=== PATIENT | female | born 1960 | race Caucasian/White ===

== ENCOUNTER 2016-07-28 16:57 | Inpatient (IN) | payer MEDICARE, MEDICAID ==
[~2016-07-28] VITALS: Ht 157.5 cm; Wt 73.8 kg
--- NOTE | ~2016-07-28 | CON ---
PATIENT'S NAME: AICHA SAEED [facility] AGE: 55 Y [address] ROOM: [address] [address] LOCATION: GICU ADMIT DATE: 07/28/2016 Consultation DISCHARGE DATE: FAMILY PHYSICIAN: PHYSICIAN, UNKNOWN ATTENDING PHYSICIAN: VINAY PANIAGUA DATE OF CONSULTATION: 07/29/2016 REFERRING PHYSICIAN: WHIT ORTIZ MD NEUROLOGICAL CONSULTATION DATE AND TIME: 07/29/2016 at 10:05 a.m. HISTORY OF PRESENT ILLNESS: This is a 55-year-old, female who had been in our sister facility for 30 days which is a mental health facility for psychosis and bipolar disorder. Apparently, the patient suffers from cerebral palsy and uses a scooter and was found in the middle of the traffic before she was taken to this facility for management. She had not taken her medications for many months. Over the last 2 days, the patient has been very agitated and not making any sense, and she was started on Thorazine. She did receive Thorazine IM and p.o. on the day of admission. She was found to be very drowsy and eventually unresponsive, and brought to our hospital emergency room for further management. By the time she reached the ED, her Rd Coma Score was 6. She would open her eyes but would not move. She does not withdraw to pain. There was no rigidity and the patient was quite flaccid. A stat CT of the head was obtained and found to be negative. Because there was a concern for airway protection, the patient was intubated and started on propofol. At the time of our examination in the ICU, the patient is intubated. She was on propofol 50 mg up until 5 o'clock this morning and that was discontinued in an attempt to wean the patient off the vent. Apparently on the propofol, she was able to point to the caregivers and mouth words. Now off the propofol, she does not move anything or react to any stimuli. Her brainstem reflexes are intact and that is about it right now. This is very suspicious for some seizure activity. The consult was completed in a timely manner to evaluate the patient. REVIEW OF SYSTEMS: Could not be accomplished, since the patient is sedated and intubated. PAST MEDICAL HISTORY: Prior medical history includes: 1. History of bipolar disorder. 2. PTSD. PATIENT'S NAME: KILLEFER, AICHA [facility] AGE: 55 Y [address] ROOM: [address] [address] LOCATION: GICU ADMIT DATE: 07/28/2016 Consultation DISCHARGE DATE: FAMILY PHYSICIAN: PHYSICIAN, UNKNOWN ATTENDING PHYSICIAN: VINAY PANIAGUA 3. History of cerebral palsy. The patient can walk with a walker, but also has a scooter for mobility. 4. Hypertension. 5. Hypothyroidism. 6. Arthritis. MEDICATIONS: Home medications are on the chart and reviewed by me. The list of medications is multiple and includes the newly added Thorazine from 2 days ago. ALLERGIES: SHE IS ALLERGIC TO PENICILLIN, CEPHALOSPORIN, ALBUTEROL, ERYTHROMYCIN, TRAMADOL, TOPAMAX, OLANZAPINE, AND LATEX. SOCIAL HISTORY: There is no substance abuse history per the reviewed records. Obviously, the patient is unable to confirm this. FAMILY HISTORY: Significant for suicide and substance abuse in her family members per the reviewed records. Obviously, the patient is unable to confirm this. PHYSICAL EXAMINATION: VITAL SIGNS: Her temperature is 99.0, pulse is 120 and regular, and respirations are 16. She does overbreathe to set that rate. Blood pressure is 149/82. GENERAL: The patient is lying comfortably in the bed and intubated. Does not make any efforts to discontinue equipment. HEENT: Head is normocephalic and atraumatic. Pupils are equal, round, midpoint, and reactive to light. NECK: Supple with no JVD noted. No bruits are auscultated. HEART: Tachycardic. S1 and S2 without murmur, rub, or gallop. LUNGS: Clear to auscultation bilaterally. ABDOMEN: Soft, nontender, and nondistended. NEUROLOGIC: As discussed, the pupils are equal and reactive to light bilaterally and 2 mm. She does overbreathe event. She does have a corneal pupil and gag reflex. She does not withdraw her extremities to any pain or move to any central pain stimulus. Her Babinski are unobtainable. 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 Her procalcitonin was 52.4, however, Thorazine can certainly elevate that. CT of head was negative for any acute intracranial abnormality. ASSESSMENT AND PLAN: PATIENT'S NAME: AICHA SAEED [facility] AGE: 55 Y [address] ROOM: [place] [address] LOCATION: GICU ADMIT DATE: 07/28/2016 Consultation DISCHARGE DATE: FAMILY PHYSICIAN: PHYSICIAN, UNKNOWN ATTENDING PHYSICIAN: VINAY PANIAGUA A 55-year-old female, presenting with altered mental status: 1. Altered mental status, unknown etiology. It could be medication related to Thorazine. Differentials include seizures also. 2. Concern for seizure. Because our EEG capability will not be present until Sunday, it would probably be in the patient's best interest to go to a facility that has EEG capabilities. We will restart her on propofol immediately, and load with Keppra 1500 mg, and continue 1000 mg b.i.d. for seizure prophylaxis in the meantime. 3. Airway protection. The patient will remain intubated for airway protection due to her neurological status. 4. History of psychosis. We will defer this treatment until the seizure versus altered mental status is declared. Thank you for the opportunity to participate in this patient's care. If you have any questions, please consult us. PRASHANTH WOODARD APRN FOR MARGI BLOOM MD PP/vilma /[id number] d: 07/29/16 1137 t: 07/31/16 1322, CONSULTATION REPORT
--- NOTE | ~2016-07-28 | CON ---
PATIENT'S NAME: [facility] AGE: 55 Y [address] ROOM: [place] [address] LOCATION: GICU ADMIT DATE: 07/28/2016 Consultation DISCHARGE DATE: 07/29/2016 FAMILY PHYSICIAN: PHYSICIAN, UNKNOWN ATTENDING PHYSICIAN: MIKHAIL PANIAGUA DATE OF CONSULTATION: 07/29/2016 REFERRING PHYSICIAN: WHIT ORTIZ MD REQUESTING PHYSICIAN: Mikhail Paniagua MD REASON FOR CONSULTATION: Evaluation and management of acute respiratory failure in a patient who was intubated and started on mechanical ventilation. CHIEF COMPLAINT: Altered mental status. HISTORY OF PRESENT ILLNESS: This is a 55-year-old female with history of schizoaffective and bipolar disorder who was admitted to the psychiatric hospital 3 days ago after an episode of acute psychosis. Initially, the patient responded to therapy with Thorazine until approximately 2 days ago when she became more combative in the psychiatric hospital. Her Thorazine doses were increased, and she also received Thorazine intramuscularly. Yesterday, she was found to be unresponsive and very drowsy. For this reason, she was transferred to our emergency department where she was promptly intubated as her GCS was 6 and there was concern for inability to protect her airways. Prior to that, there was no evidence of rigidity, although the patient was found to be flaccid. After she was intubated, she was started on mechanical ventilation with a tidal volume of 500 and respiratory rate of 14. Overnight, she required only 30% FiO2 while on a PEEP of 5. Earlier this morning, she was started on CPAP mode with a pressure support of 10. The patient was able to breathe on her own at the time of my examination, although she would not respond in any way including to strong verbal stimuli or painful stimuli. It seems that last night she was able to follow commands for a short period of time. Because of her acute respiratory failure requiring mechanical ventilation, I was asked by the admitting physician, Dr. Paniagua, from the hospitalist team to come and evaluate the patient. The patient was initially placed on propofol, which was put on hold earlier this morning. REVIEW OF SYSTEMS: Could not be obtained because of the patient's clinical status. She was intubated and unresponsive at the time of my examination. PATIENT'S NAME: KILLEFER, [facility] AGE: 55 Y [address] ROOM: [address] [place] [id number] LOCATION: [facility] ADMIT DATE: 07/28/2016 Consultation DISCHARGE DATE: 07/29/2016 FAMILY PHYSICIAN: PHYSICIAN, UNKNOWN ATTENDING PHYSICIAN: MIKHAIL PANIAGUA PAST MEDICAL HISTORY: 1. History of bipolar disorder. 2. PTSD. 3. History of schizoaffective disorder. 4. Hypertension. 5. Hypothyroidism. 6. Osteoarthritis. 7. Cerebral palsy. CURRENT MEDICATIONS: Reviewed as per chart and documented in the MAR. ALLERGIES: PENICILLIN, CEPHALOSPORIN, ALBUTEROL, ERYTHROMYCIN, TRAMADOL, TOPAMAX, OLANZAPINE, AND LATEX. SOCIAL HISTORY: There is no history of alcohol or illicit drug abuse. FAMILY HISTORY: Could not be obtained because of the patient's clinical status. PHYSICAL EXAMINATION: VITAL SIGNS: Temperature is 100.4, heart rate is 113, respiratory rate is 14, blood pressure is 128/69, and oxygen saturation 98% on 30% FiO2 and a PEEP of 5. Weight is 73.8 kg and height is 5 feet 2 inches with a BMI of 29.7. GENERAL: She is intubated with a #7.5 endotracheal tube secured at 24 cm at the teeth. CARDIOVASCULAR: Regular rhythm, tachycardic. No murmur, rubs, or gallops. RESPIRATORY: Good air entry bilaterally. Clear to auscultation. ABDOMEN: Soft, nontender, and nondistended. Bowel sounds are present. EXTREMITIES: No lower extremity edema, no cyanosis, and no clubbing. NEUROLOGICAL: Her pupils are reactive to light. She is not responding to strong verbal stimuli or painful stimuli either. Babinski is negative. LABORATORY AND DIAGNOSTIC DATA: Head CT was negative for any acute intracranial abnormality. Lactic acid was 1.1. Arterial blood gas yesterday in the emergency department revealed a pH of 7.45, pCO2 was 41, and PO2 was 91 while on supplemental oxygen at 2 L per minute. Earlier today, her pH was 7.54, pCO2 was 30, and PO2 was 84 while on 30% FiO2. The base excess was 3.7. Chest x-ray revealed the endotracheal tube being present at about 4 cm above the carolee. The lung beatty did not reveal any opacities, and she had no evidence of pleural effusion. An ABG this morning revealed a pH of 7.54, pCO2 of 30, and PO2 of 84 while on 30% PATIENT'S NAME: AICHA SAEED [facility] AGE: 55 Y [address] ROOM: [id number] [place], [place] [address] LOCATION: GICU ADMIT DATE: 07/28/2016 Consultation DISCHARGE DATE: 07/29/2016 FAMILY PHYSICIAN: PHYSICIAN, UNKNOWN ATTENDING PHYSICIAN: MIKHAIL PANIAGUA. Troponin on arrival was less than 0.04, CK-MB was less than 0.5, and CPK was 245. Basic panel from today was normal. CBC was normal as well. Prolactin was elevated at 52.4. Urine drug screen was negative. ASSESSMENT AND PLAN: 1. Acute respiratory failure. The patient was intubated for airway protection. Currently, she has a stable respiratory status, although there is still high concern for inability to protect her airway because of her altered mental status. 2. Altered mental status. This is of unclear etiology. It can be a side effect from medications versus subclinical seizures. I doubt the patient has neuroleptic malignant syndrome. 3. History of bipolar disorder with psychosis. The patient was admitted for an episode of acute psychosis. 4. History of cerebral palsy. 5. Tachycardia. This is most likely a side effect from medication. PLAN: 1. We will continue with mechanical ventilation, and we will wait for her mental status to improve. We will continue to use CPAP mode as long as the patient's respiratory drive is still present. 2. We will minimize sedation, and if her hemodynamic status allows, we will try to use propofol. 3. We will follow up neurology and psychiatry team's recommendations. I spent 35 minutes of critical care time managing acute respiratory failure in a patient with altered mental status with multiple psychiatric disorders. I personally reviewed the data and coordinated care among healthcare providers. No family member was available for updates. I would like to thank you, Dr. Paniagua, for giving me the opportunity to participate in this patient's care. MD BALBIR BEASLEY/vilma /[id number] d: 07/29/16 1226 t: 07/31/16 0843, CONSULTATION REPORT
--- NOTE | ~2016-07-28 | ER ---
PATIENT'S NAME: AICHA SAEED [facility] AGE: 55 Y [address] ROOM: [place] [address] LOCATION: GICU ADMIT DATE: 07/28/2016 ER/Outpatient Report DISCHARGE DATE: FAMILY PHYSICIAN: PHYSICIAN, UNKNOWN ATTENDING PHYSICIAN: VINAY PANIAGUA CHIEF COMPLAINT: Unresponsive. HISTORY OF PRESENT ILLNESS: The patient arrives by ambulance for [facility] for evaluation of an unresponsive episode. The patient has been hospitalized for approximately 1 month at their facility and is originally from [place] and has no local physician. She has a history of schizoaffective disorder. She had been tried on multiple medications while in [facility] to stabilize her manic-type episode. Yesterday, she was having significant outbursts and aggressiveness and was treated with Thorazine. She got higher dose this morning and since then has been basically completely unresponsive. Her vital sign checks have revealed elevated blood pressure; however, the patient has been refusing her blood pressure medication. Otherwise, according to the transferring provider, she has been noninteractive and lying in bed throughout the day. He was initially concerned that she just needed to sleep because of how intense yesterday was; however, it appears as though she is not improving with some rest and that is why she was sent in. Her last dose was this morning. The exact time is unknown. She was also noted to have cerebral palsy at baseline. Dr. Pinto is who I have spoken with at that facility. PAST MEDICAL HISTORY: Notable for schizoaffective disorder and cerebral palsy of undetermined severity and high blood pressure as well. PAST SURGICAL HISTORY: I do not have any information on that. SOCIAL HISTORY: The patient has a medical decision maker brother named Dean who lives in [place] as best I can tell. She is not independent otherwise. REVIEW OF SYSTEMS: Unable to obtain review of systems secondary to the patient's current mental status. All available information was obtained from the transferring facility and providers there. PHYSICAL EXAMINATION: PATIENT'S NAME: AICHA SAEED [facility] AGE: 55 Y [address] ROOM: [place] [address] LOCATION: GICU ADMIT DATE: 07/28/2016 ER/Outpatient Report DISCHARGE DATE: FAMILY PHYSICIAN: PHYSICIAN, UNKNOWN ATTENDING PHYSICIAN: VINAY PANIAGUA VITAL SIGNS: Blood pressure 150/93, pulse 110, respiratory rate is 16, temperature 98.8, SpO2 is 96% on room air. Pain is 0/10. GENERAL: Age-appropriate female, lying in the bed with no meaningful movement, in no apparent pain or distress. NEURO: The patient is not awake. Her GCS is 5-6. She is flaccid with no movement or withdrawal to pain and she is nonverbal. Her eyes are intermittently open and close spontaneously. She is flaccid except for when the arm is held over the face, it falls down to her side, not into her face. She occasionally will blink to confrontation when her eyes are held open. HEENT: Her pupils are PERRL, extraocular movements appear to be intact, though it is difficult to evaluate them. She does not react to sternal rub. She does not react to pain or stimulus in the periphery. She does not arouse to name. Reflexes were difficult to test, but appeared to be intact. Normocephalic, atraumatic. The eyes are PERRL. Pupils are 3-4 mm and reactive. Sclerae are clear. The nasopharynx is normal to inspection. The oropharynx is small, but no erythema, exudates, or bleeding. NECK: Supple. The trachea is midline. CHEST: Heart is tachycardic with no obvious murmurs. LUNGS: Clear to auscultation bilateral in all lung beatty. ABDOMEN: Soft, nontender, and nondistended. No rebound, no guarding, no masses. BACK: Normal to inspection. EXTREMITIES: Warm and well-perfused with no obvious deformities or edema. SKIN: Intact with no rashes, bruising, or erythema appreciated. He. IMAGING: Head CT was obtained and read as normal per Radiology. Post intubation chest x-ray was obtained and will be confirmed in the ICU. The EKG is sinus tachycardia, rate of 105 with IN 136, QRS of 82, QTc of 388. Otherwise, normal intervals and axis. No signs of acute ischemia or dysrhythmia at this time. LABORATORY DATA: Lactate is 1.1. Sodium 142, potassium 3.9, chloride 107, CO2 is 24, BUN is 11, and creatinine 0.6. GFR is greater than 60. LFTs are all within normal limits. CPK is elevated at 362. CK-MB is 0.7. Troponin I is below threshold. WBCs of 5.9, hemoglobin 14.0, platelets of 215. INR is 0.9. Free T4 is 1.1. TSH is 4.22. PH 7.45, pCO2 is 41, PO2 is 91, bicarb is 28.5, saturating 97% on 2 L nasal cannula, but breathing through the mouth primarily. IMPRESSION: 1. Unresponsive episode, likely related to chlorpromazine. 2. Possible neuroleptic malignant syndrome. PATIENT'S NAME: AICHA SAEED [facility] AGE: 55 Y [address] ROOM: [place] [address] LOCATION: [facility] ADMIT DATE: 07/28/2016 ER/Outpatient Report DISCHARGE DATE: FAMILY PHYSICIAN: PHYSICIAN, UNKNOWN ATTENDING PHYSICIAN: VINAY PANIAGUA 3. Hypothyroidism. 4. Elevated CPK. EMERGENCY DEPARTMENT COURSE: The patient was evaluated as above. She was maintaining her airway adequately and exchanging gas appropriately. However, based on her current mental status, I was concerned about her safety regarding her airway with her current mental status. With an unclear etiology at this time and high probability for airway compromise, I elected to intubate the patient. I did try to contact her medical decision maker, Dean, and was unable to do so, but I left a message on the phone number. The intubation was done by, Evelina Heard, flight nurse, under my immediate direct supervision. Attempt with a 3 blade on a Clothier scope was difficult secondary to a small mouth and deep larynx. On a second attempt, with a 4 blade, we had a grade 1 view of the glottis and we were able to intubate with no difficulty. There was no injury to teeth. There was a little bit of blood in the posterior oropharynx at the end of the procedure. No obvious areas of bleeding. The patient was induced with 20 of etomidate and 10 of vecuronium. I did not have her electrolyte status at that time. The procedure was without difficulty and the lowest O2 saturation achieved was 94%. The patient otherwise tolerated the procedure well and postprocedure chest x-ray was ordered and was pending. Transferred to the ICU. The patient was given fluids for possible dehydration/hypovolemia versus early autonomic instability and neuroleptics malignant syndrome. As this is my chief diagnosis, I have discussed the case with the hospitalist on-call, and we will admit her to his service in the ICU for further evaluation and treatment. Please see his dictation for further details regarding this patient's hospital care. Critical Care: 56 minutes of critical care was spent on this patient not including the intubation. Care was for patient evaluation, contacting sending provider, gathering history from prior hospital, patient evaluation, ordering and interpreting labs including blood gas and EKG. Care was warranted for acute encephalopathy of undetermined etiology. MD CARL PRYOR/vilma /[id number] d: 07/29/168[address] t: 07/31/16 1814, OUTPATIENT REPORT
--- NOTE | ~2016-07-28 | HP ---
PATIENT'S NAME: AICHA SAEED [facility] AGE: 55 Y [address] ROOM: [place] [address] LOCATION: [facility] ADMIT DATE: 07/28/2016 History & Physical DISCHARGE DATE: FAMILY PHYSICIAN: PHYSICIAN, UNKNOWN ATTENDING PHYSICIAN: VINAY PANIAGUA DATE OF SERVICE: PRIMARY CARE PHYSICIAN: None. CHIEF COMPLAINT: Altered mental status. HISTORY OF PRESENT ILLNESS: This is a 55-year-old female, who has been undergoing treatment at [facility] for the past month or so. The patient has a history of bipolar disorder and also psychosis. She was undergoing treatment per reviewed records. Apparently, the patient was very agitated and did not make any sense over the past couple of days. This morning, she ended up receiving a dose of Thorazine initially IM and then p.o. Subsequently, the patient was found to be unresponsive and very drowsy. She was then transferred to [facility] ER for further evaluation and management of her unresponsive episode and altered mental status. As per history received from the ER physician, by the time the patient came to the ER, she had a GCS score of 6. She would open her eyes but would not move her body. She would also not withdraw to pain. She had no spontaneous movements. There was no rigidity, but the patient was found to be flaccid. She would still open her eyes on command. Stat CT of head was obtained at that point of time and was found to be negative. There was concern for airway obstruction, and the patient was intubated in the ER by the ER physician for airway protection. At the time of my examination in the ICU, the patient is intubated. She does not follow any commands. She is currently just starting to be sedated with propofol. She is also slightly hypertensive and tachycardic at this point of time. Her temperature is normal. No other history could be obtained from the patient at this point of time. REVIEW OF SYSTEMS: A 10-point review of systems could not be accomplished since the patient is sedated and intubated. PAST MEDICAL HISTORY: PATIENT'S NAME: AICHA SAEED [facility] AGE: 55 Y [address] ROOM: [place] [address] LOCATION: GICU ADMIT DATE: 07/28/2016 History & Physical DISCHARGE DATE: FAMILY PHYSICIAN: PHYSICIAN, UNKNOWN ATTENDING PHYSICIAN: VINAY PANIAGUA 1. History of bipolar disorder. 2. PTSD. 3. History of cerebral palsy. 4. Hypertension. 5. Hypothyroidism. 6. Arthritis. HOME MEDICATIONS: Not available at the time of dictation. ALLERGIES: 1. PENICILLIN. 2. CEPHALOSPORIN. 3. ALBUTEROL. 4. ERYTHROMYCIN. 5. TRAMADOL. 6. TOPAMAX. 7. OLANZAPINE. 8. LATEX. SOCIAL HISTORY: Reviewed. No substance abuse history per reviewed records. She has a history of cerebral palsy. FAMILY HISTORY: Significant for suicide and substance abuse per reviewed records. PHYSICAL EXAMINATION: GENERAL: Temperature 99.0, pulse 112 and regular, respirations 14, blood pressure 180/105. GENERAL: The patient is sedated and intubated currently. HEENT: Head: Normocephalic, atraumatic. Pupils are equal, round, and reactive to light bilaterally. Nares are clear. Throat, the patient has an endotracheal tube to the angle of the mouth. NECK: Supple. HEART: Tachycardic. Regular rhythm. LUNGS: Clear to auscultation bilaterally. Equal breath sounds heard bilaterally. ABDOMEN: Soft, nontender, nondistended. Bowel sounds are present. EXTREMITIES: No clubbing, cyanosis, or edema. VASCULAR: Pulses 2+ distally bilaterally. NEUROLOGIC: The patient is sedated and intubated. Pupils are equal, round, reactive to light bilaterally. The patient had a GCS score of 6 prior to intubation. She would open her eyes prior to intubation but not withdraw to pain. PATIENT'S NAME: AICHA SAEED [facility] AGE: 55 Y [address] ROOM: [id number] [place] [id number] LOCATION: [facility] ADMIT DATE: 07/28/2016 History & Physical DISCHARGE DATE: FAMILY PHYSICIAN: PHYSICIAN, UNKNOWN ATTENDING PHYSICIAN: VINAY PANIAGUA DIAGNOSTIC STUDIES: Initial ABG done in the ER prior to intubation showed a pH of 7.45, pCO2 of 41, pO2 of 91, bicarb 28.5, saturation 97% on 2 L nasal cannula oxygen, lactate 1.1. Accu-Chek 89. CPK 362. Troponin I is less than 0.04. CBC showed a white count of 5.9, hemoglobin 14.2, hematocrit 42.7, platelet 215. CMP showed sodium 142, potassium 3.9, chloride 107, bicarb 24, BUN 11, creatinine 0.6, glucose 84, calcium 8.8. Total protein 7.3, albumin 3.8, AST 32, ALT 29, alkaline phosphatase 111, total bilirubin 0.9, anion gap 14.9, globulin 3.5, GFR more than 60. PT 9.8, INR 0.9, PTT 30. UA is pending at this point of time. Urine drug screen is pending. CK-MB 0.7. Free T4 1.1. TSH 4.22. Procalcitonin level less than 0.05. CT of head done in the ER prior to intubation for unresponsive episode showed no acute intracranial abnormality. CTA of head and neck is pending after Neurology recommendation. Chest x-ray done after intubation shows endotracheal tube in place. No acute cardiopulmonary abnormality noted. EKG showed sinus tachycardia with a rate of 112 beats per minute. ASSESSMENT AND PLAN: A 55-year-old female, presenting with altered mental status. 1. Altered mental status. Unsure about the etiology of altered mental status. This is likely medication related. The patient received a couple doses of Thorazine. Differential of altered mental status at this point includes seizure, serotonin syndrome, neuroleptic malignant syndrome, medication effect. Neurology has been consulted. Further recommendations per Neurology. 2. Concern for seizure. Discussed the case with Neurology. EEG will be obtained in the a.m. The patient is currently on propofol. Discussed with Dr. Ma and continue propofol for now for seizure. Differential also includes stroke. The patient may undergo a stat CTA head and neck currently. We will follow up with Neurology recommendations after the CTA head and neck. 3. Acute hypoxic respiratory failure. The patient was intubated in the ER for airway protection. I will repeat an ABG in an hour. 4. History of psychosis. We will obtain a Psychiatry consult for the patient while she is here at [facility]. 5. History of bipolar disorder. 6. History of posttraumatic stress disorder. 7. Hypothyroidism. Continue home medication. 8. Hypertension. The patient is hypertensive. She received propofol and pressure is now slightly decreasing. I will utilize hydralazine p.r.n. for hypertension. Continue home medications for hypertension. 9. History of cerebral palsy. 10. Code status. Full code. The patient is currently intubated. PATIENT'S NAME: AICHA SAEED [facility] AGE: 55 Y [address] ROOM: [address] [address] LOCATION: [facility] ADMIT DATE: 07/28/2016 History & Physical DISCHARGE DATE: FAMILY PHYSICIAN: PHYSICIAN, UNKNOWN ATTENDING PHYSICIAN: VINAY PANIAGUA 11. Deep vein thrombosis prophylaxis. SCD to legs. VINAY PANIAGUA MD MT/vilma /[id number] D: [id number] T: [id number] HISTORY & PHYSICAL
--- NOTE | ~2016-07-28 | DS ---
PATIENT'S NAME: AICHA SAEED [facility] AGE: 55 Y [address] ROOM: [address] [address] LOCATION: [facility]ICU ADMIT DATE: 07/28/2016 Discharge Summary DISCHARGE DATE: 07/29/2016 FAMILY PHYSICIAN: Physician, Unknown ATTENDING PHYSICIAN: Mikhail Flaherty FINAL/DISCHARGE DIAGNOSES: 1. Acute encephalopathy felt to be secondary to seizure activity. 2. Essential hypertension. 3. Hypothyroidism. 4. History of bipolar disorder. 5. Post-traumatic stress disorder. HISTORY OF PRESENT ILLNESS: For details of admission, please see the history and physical dictated by Dr. Flaherty, but in short, the patient was accepted and was hospitalized at [facility] for her underlying mental condition. She had received two doses of Thorazine one IM and one p.o. Shortly after that she was found unresponsive. She was brought into the Emergency Room at [facility] and was intubated and admitted into the intensive care unit. LABORATORY STUDIES: ABGs on admission; pH 7.45, pCO2 of 41, pO2 of 91, and O2 saturation 97% on 2 L. ABGs on the morning of the with pH of 7.54, pCO2 of 30, and pO2 of 84. Admission sodium of 142, potassium 3.9, chloride 107, CO2 of 24, BUN 11, creatinine 0.6, alkaline phosphatase 111, AST 32, and ALT 29. CPK 362, MB 0.7, and troponin is less than 0.04. Admission white blood cell count 5.9, hemoglobin 14.0, hematocrit 42.7, and platelet count is 215,000. PTT 30, prothrombin time 9.8, and INR 0.9. Urinalysis is 0-2 reds, 0-2 whites. Chest x-ray done after intubation showed proper tube placement. No evidence of any acute process. A CT scan of the head without contrast did not show any intracranial abnormality. A CT angiogram did not show any high- grade vessel stenosis. There is a mild short segment stenosis of the mid right ICA. Chest x-ray on the second hospital day remained unremarkable. HOSPITAL COURSE: The patient was admitted into the intensive care unit after presenting to the emergency room. She was placed on Diprivan for sedation while being ventilated. She was evaluated for stroke, and Teleneurology was consulted. Studies really did not show any significant abnormality. It was noted during the night by the night nurses that the patient was interactive. She was mouthing words to them and following commands. Her propofol was shut off at 5:00 a.m. and by the time I rounded this morning, the patient was unresponsive again. She was also tachycardic, hypertensive, and had a low- grade fever. She was seen again by Teleneurology. A decision was made that most likely she was seizing, a dose of Keppra at 1500 mg is ordered for IV infusion, and then started on a 1000 mg twice daily. At this time, we do not PATIENT'S NAME: AICHA SAEED [facility] AGE: 55 Y [address] ROOM: [id number] [place], [place] [address] LOCATION: [facility] ADMIT DATE: 07/28/2016 Discharge Summary DISCHARGE DATE: 07/29/2016 FAMILY PHYSICIAN: Physician, Unknown ATTENDING PHYSICIAN: Mikhail Flaherty have EEG availability so the patient was felt that she needed to be transferred. I contacted the [facility] and spoke with Dr. Onel Atkinson, who said that the patient would be accepted under the care of Dr. Fred Claros. DISCHARGE INSTRUCTIONS: Discharge orders: 1. The patient was discharged on propofol. 2. Normal saline at 75 mL an hour. 3. NovoLog, mild sliding scale. 4. Lopressor 5 mg IV q.6 hours. Hold for heart rate less than 60 or systolic blood pressure less than 95. 5. Protonix 40 mg IV daily. 6. [place] spray 2 nasal sprays every 6 hours per VAP protocol. 7. Dextrose, 50% dextrose 25 mL IVP for hypoglycemia. 8. Fentanyl 25 to 50 mcg IV push as needed for pain. 9. Glucagon 1 mg subcutaneous for hypoglycemia. 10. Glucose 16 g for hypoglycemia. 11. Apresoline 10 mg IV every 6 hours for systolic blood pressure greater than 180. 12. Keppra 1000 mg IV q.12. DISPOSITION: The patient will be flown via helicopter to [facility]. DEANGELO MONTALVO MD LAW/modl /[id number] d: 07/29/16 1210 t: 08/09/16 1643, DISCHARGE SUMMARY
[~2016-07-28 16:57] MED LIST changes: -CEPASTAT1 LOZ MT; -INVEGA SUS156 MG/1 M IM; -LIP BALM BASE90 GM TOP; -MILK OF MA400 MG/5 M PO; -MYLANTA (MAG-AL30 ML PO; -NEOSPORIN OINT1 EACH TOP; -PEPCID20 MG PO; -SUDAFED30 MG PO; -THORAZINE IM; -THORAZINE100 MG PO; -THORAZINE25 MG PO; -TYLENOL325 MG PO
[2016-07-28 17:42] LABS: BICARBONATE 28.5 mmol/L (18.0-23.0); PCO2 41 mmHg (35-45); PO2 91 mmHg (80-90)
[2016-07-28 17:42] LABS: BASOPHIL % 0.5 %; EOSINOPHIL # 0.1 K/uL (0.0-0.5); EOSINOPHIL % 1.3 %; HEMATOCRIT 42.7 % (33.0-46.0); IMMATURE GRANULOCYTE % 0.2 %; LYMPHOCYTE # 1.7 K/uL (0.8-4.0); LYMPHOCYTE % 29.1 %; MCH 30.7 pg (27.0-34.0); MCHC 32.8 gm/dL (32.0-36.5); MCV 93.6 fl (83.0-98.0); MONOCYTE # 0.7 K/uL (0.0-1.0); MONOCYTE % 12.3 %; MPV 8.9 fl (9.4-12.4); NEUTROPHIL # (ANC) 3.4 K/uL (1.8-7.8); NEUTROPHIL % 56.6 %; NRBC % 0 /100WBC (0-0.00); PLATELET COUNT 215 K/uL (150-450); RBC 4.56 M/uL (3.50-5.50); RDW-CV 12.7 % (11.9-14.6); WBC 5.9 K/uL (4.0-11.0)
[2016-07-28 17:48] LABS: INR - (THERAPEUTIC) 0.9 (0.9-1.1); PROTIME 9.8 SECONDS (9.6-11.1); PTT 30 SECONDS (25-32)
[2016-07-28 18:02] LABS: ALBUMIN 3.8 gm/dL (3.5-5.0); ALK PHOS 111 IU/L (33-138); ALT 29 IU/L (12-78); ANION GAP 14.9 (10.0-19.0); AST 32 IU/L (10-40); BLOOD UREA NITROGEN 11 mg/dL (6-24); CALCIUM 8.8 mg/dL (8.5-10.5); CHLORIDE 107 mMol/L (96-110); CO2 24 mMol/L (22-32); CPK 362 IU/L (21-215); CREATININE 0.6 mg/dL (0.5-1.1); ESTIMATED GFR (MDRD EQUATION) > 60; POTASSIUM 3.9 mMol/L (3.7-5.1); SODIUM 142 mMol/L (135-145); TOTAL BILIRUBIN 0.9 mg/dL (0.0-1.5); TOTAL PROTEIN 7.3 g/dL (6.0-8.4)
[2016-07-28 18:47] LABS: BILIRUBIN URINE NEGATIVE (NEGATIVE); BLOOD URINE NEGATIVE /UL (NEGATIVE); COLOR URINE YELLOW (YELLOW); GLUCOSE URINE NEGATIVE (NEGATIVE); KETONE URINE NEGATIVE (NEGATIVE); LEUKOCYTES URINE 25 /UL (NEGATIVE); NITRITE URINE NEGATIVE (NEGATIVE); PROTEIN URINE NEGATIVE (NEGATIVE); SPEC GRAVITY URINE 1.015 (1.003-1.035); TURBIDITY URINE CLEAR (CLEAR); UROBILINOGEN URINE NORMAL (NORMAL)
[2016-07-28 19:03] LABS: RBC URINE NEGATIVE #/HPF (NEGATIVE); WBC URINE 0-2 #/HPF (NEGATIVE)
[2016-07-28 19:04] LABS: AMORPHOUS URINE 1+ (NEGATIVE); BACTERIA URINE RARE (NEGATIVE); EPITHELIAL URINE 0-2 #/HPF (NEGATIVE)
[2016-07-28 19:06] LABS: BARBITURATE NEGATIVE (NEGATIVE); COCAINE NEGATIVE (NEGATIVE); OPIATES NEGATIVE (NEGATIVE)
[2016-07-28 19:07] LABS: AMPHETAMINE NEGATIVE (NEGATIVE)
[2016-07-28] MEDS ORDERED: THORAZINE IM ×2 (19:43→19:44)
[2016-07-28] MEDS ORDERED: THORAZINE25 MG PO (19:45)
[2016-07-28] MEDS ORDERED: THORAZINE100 MG PO (19:46)
[2016-07-28] MEDS ORDERED: INVEGA SUS156 MG/1 M IM (19:50)
[2016-07-28] MEDS ORDERED: DRISDOL 5050000 UNIT PO (19:52)
[2016-07-28] MEDS ORDERED: TYLENOL325 MG PO (19:53)
[2016-07-28] MEDS ORDERED: MYLANTA (MAG-AL30 ML PO (19:54)
[2016-07-28] MEDS ORDERED: LIP BALM BASE90 GM TOP (19:55)
[2016-07-28] MEDS ORDERED: PEPCID20 MG PO (19:55)
[2016-07-28] MEDS ORDERED: MILK OF MA400 MG/5 M PO (19:57)
[2016-07-28 19:58] LABS: CPK 324 IU/L (21-215)
[2016-07-28] MEDS ORDERED: NEOSPORIN OINT1 EACH TOP (19:58)
[2016-07-28] MEDS ORDERED: SUDAFED30 MG PO (19:59)
[2016-07-28] MEDS ORDERED: CEPASTAT1 LOZ MT (20:02)
[2016-07-28 20:59] LABS: BICARBONATE 24.2 mmol/L (18.0-23.0); PCO2 35 mmHg (35-45); PO2 181 mmHg (80-90)
[2016-07-29 02:23] LABS: BASOPHIL % 0.4 %; EOSINOPHIL % 0.4 %; HEMATOCRIT 37.9 % (33.0-46.0); HEMOGLOBIN 12.7 g/dL (10.0-15.0); IMMATURE GRANULOCYTE % 0.3 %; LYMPHOCYTE # 0.9 K/uL (0.8-4.0); LYMPHOCYTE % 9.3 %; MCH 30.8 pg (27.0-34.0); MCHC 33.5 gm/dL (32.0-36.5); MCV 91.8 fl (83.0-98.0); MONOCYTE # 0.8 K/uL (0.0-1.0); MONOCYTE % 8.4 %; MPV 8.9 fl (9.4-12.4); NEUTROPHIL # (ANC) 7.9 K/uL (1.8-7.8); NEUTROPHIL % 81.2 %; NRBC % 0 /100WBC (0-0.00); PLATELET COUNT 182 K/uL (150-450); RBC 4.13 M/uL (3.50-5.50); RDW-CV 12.7 % (11.9-14.6); WBC 9.8 K/uL (4.0-11.0)
[2016-07-29 02:41] LABS: ANION GAP 12.7 (10.0-19.0); BLOOD UREA NITROGEN 12 mg/dL (6-24); CALCIUM 8.6 mg/dL (8.5-10.5); CHLORIDE 107 mMol/L (96-110); CO2 24 mMol/L (22-32); CPK 245 IU/L (21-215); CREATININE 0.6 mg/dL (0.5-1.1); ESTIMATED GFR (MDRD EQUATION) > 60; POTASSIUM 3.7 mMol/L (3.7-5.1); SODIUM 140 mMol/L (135-145)
[2016-07-29 04:05] LABS: BICARBONATE 25.7 mmol/L (18.0-23.0); PCO2 30 mmHg (35-45)
[2016-07-29 04:07] LABS: PO2 84 mmHg (80-90)
--- NOTE | 2016-07-29 04:53 | NUR ---
Significant Event: Patient arrrived to ICU at 1850, intubated and sedated. Opens eyes to voice. Moves all extremities spontaneously. Following commands. HR's 100's-130's. SBP 100's-170's. Tmax 100.4. AC mode. Fio2 30%. Peep 5. Clear lung sounds. Moderate amount out of ET/oral. Thick/bloody. OG TO LIS. NO BM during shift. Coleman to DD with adeq UOP. Fentanyl given x1 for vent china. Follow up:Extubate/PCU
--- NOTE | 2016-07-29 11:13 | NUR ---
NEURO: When stimulated with trapezius pinch, sternal pressure, and supraorbital pressure, patient does not respond. PERRLA 3 mm. Gag and cough present. Reacts to ocular threat. Does not withdraw to nailbed pressure. 1500 ml Keppra given at 1100. CARDIO: HTN. 5 mg lopressor given at 1100. Tachycardia. HR 100. Temp 100.7. SBP 130s-150s. RESP: CPAP 30% Overbreathes vent. : Coleman with adequate clear yellow output. GI: No BM. Active bowel sounds. IV: NS at 75 ml/hr. Propofol at 25 mcg/kg/min.
--- NOTE | 2016-07-29 15:08 | NUR ---
Attempted to see patient this am. but nurse reported that she may be having seizures and requested to check back later. [facility] and not seen by PT.
--- NOTE | 2016-07-29 17:21 | NUR ---
PATIENT TRANSFERRED TO [facility] FOR EEG, PATIENT TAKEN BY FLIGHT
== END 2016-07-29 11:45 | disposition hospice, home (50) | DRG 208 ==
LOC: GMED 16:57 → GICU 18:13
PROVIDERS: Emergency Medicine; ADMIT Family Medicine
PROC: 0BH17EZ Insertion of Endotracheal Airway into Trachea, Via Natural or Artificial Opening (ICD-10-PCS; principal; 2016-07-28)
PROC: 5A1935Z Respiratory Ventilation, Less than 24 Consecutive Hours (ICD-10-PCS; principal; 2016-07-28)
DX: J96.01 Acute respiratory failure with hypoxia (principal); G93.40 Encephalopathy, unspecified; R56.9 Unspecified convulsions; G80.9 Cerebral palsy, unspecified; I10 Essential (primary) hypertension; E03.9 Hypothyroidism, unspecified; F25.0 Schizoaffective disorder, bipolar type; Z79.82 Long term (current) use of aspirin; F43.10 Post-traumatic stress disorder, unspecified
CPT/HCPCS: C9113; J1644; J1953; J2704; J3010; J7030; J7040; Q9967

== ENCOUNTER → 2016-07-28 | Outpatient (CLI) | payer MEDICARE, MEDICAID ==
[~2016-07-28] MED LIST: ABILIFY MAINTE400 M1 IM; ARIPIPRAZOLE15 MG PO; ASPIRIN (CHILDR81 MG PO; ATIVAN 1 MG1 MG PO; CALAN SR GENER240 MG PO; CEPASTAT1 LOZ MT; COLACE100 MG PO; DRISDOL 5050000 UNIT PO; FISH OIL 1,0001 EACH PO; HYDRODIURIL12.5 MG PO; INVEGA SUS156 MG/1 M IM; LIP BALM BASE90 GM TOP; MILK OF MA400 MG/5 M PO; MIRALAX17 GM PO; MYLANTA (MAG-AL30 ML PO; NEOSPORIN OINT1 EACH TOP; NEURONTIN300 MG PO; PEPCID20 MG PO; PRINIVIL OR ZES10 MG PO; PROTONIX40 MG PO; SUDAFED30 MG PO; THORAZINE IM; THORAZINE100 MG PO; THORAZINE25 MG PO; TYLENOL325 MG PO
== END | disposition disaster alternative care site (69) ==
LOC: GAMB 16:37
DX: F99 Mental disorder, not otherwise specified (principal); R40.20 Unspecified coma; E03.9 Hypothyroidism, unspecified; F31.9 Bipolar disorder, unspecified; I10 Essential (primary) hypertension; R53.83 Other fatigue
CPT/HCPCS: A0425; A0429

== ENCOUNTER → 2016-07-29 | Outpatient (CLI) | payer MEDICARE, MEDICAID ==
[~2016-07-29] MED LIST changes: +CEPASTAT1 LOZ MT; +INVEGA SUS156 MG/1 M IM; +LIP BALM BASE90 GM TOP; +MILK OF MA400 MG/5 M PO; +MYLANTA (MAG-AL30 ML PO; +NEOSPORIN OINT1 EACH TOP; +PEPCID20 MG PO; +SUDAFED30 MG PO; +THORAZINE IM; +THORAZINE100 MG PO; +THORAZINE25 MG PO; +TYLENOL325 MG PO
== END | disposition disaster alternative care site (69) ==
LOC: GAIR 11:52 → GAMB 11:52
DX: R40.20 Unspecified coma (principal); I10 Essential (primary) hypertension; F25.9 Schizoaffective disorder, unspecified; Z79.2 Long term (current) use of antibiotics; Z79.82 Long term (current) use of aspirin; Z79.899 Other long term (current) drug therapy; Z91.040 Latex allergy status
CPT/HCPCS: A0422; A0431; A0436